=== PATIENT | female | born 1970 | race African-American/Black ===

== ENCOUNTER 2017-07-11 22:19 | Emergency (ER) | payer MEDICAID ==
[~2017-07-11] VITALS: Ht 162.6 cm; Wt 94.0 kg
[~2017-07-11 22:19] MED LIST: ALBU05 IH; ALBU18HF2 IH; ERYT-111 PO
[2017-07-12 02:47] VITALS: BP 144/69
== END 2017-07-12 02:50 | disposition home or self-care (01) ==
LOC: ER 22:19
DX: S46.911A Strain of unspecified muscle, fascia and tendon at shoulder and upper arm level, right arm, initial encounter (principal); M72.2 Plantar fascial fibromatosis; E66.9 Obesity, unspecified; X58.XXXA Exposure to other specified factors, initial encounter; Y93.89 Activity, other specified; Y92.89 Other specified places as the place of occurrence of the external cause; Y99.8 Other external cause status
CPT/HCPCS: 99283; Z7610

== ENCOUNTER 2018-05-03 03:30 | Emergency (ER) | payer MEDICAID ==
[~2018-05-03] VITALS: Ht 162.6 cm; Wt 104.0 kg
[2018-05-03 05:52] LABS: BASOPHILS % 0.9 % (0.0-2.0); EOSINOPHILS % 3.5 % (0.0-5.0); HEMATOCRIT. 35.9 % (36.0-48.0); HEMOGLOBIN. 11.9 g/dL (12.0-16.0); LYMPHOCYTES % 42.2 % (20.0-50.0); MEAN CORPUSCULAR HEMOGLOBIN 28.1 pg (28.0-32.0); MEAN CORPUSCULAR VOLUME 84.8 fL (81.0-99.0); MEAN PLATELET VOLUME 9.1 fl (7.4-10.4); MONOCYTES % 6.9 % (2.0-8.0); NEUTROPHILS % 46.5 % (40.0-76.0); PLATELET 302 x1000/uL (130-400); RED BLOOD CELL COUNT 4.23 mill/uL (4.2-5.4); RED CELL DISTRIBUTION WIDTH 15.3 % (11.6-14.6)
[2018-05-03 06:12] LABS: PARTIAL THROMBOPLASTIN TIME 26.3 sec (23.4-31.0)
[2018-05-03 07:34] VITALS: BP 140/89
[2018-05-03] MEDS ORDERED: OXYMETAZOLINE HCL NASAL SPRAY 15ML BOTHNSTRLS SCH (09:00)
== END 2018-05-03 07:49 | disposition home or self-care (01) ==
LOC: ER 05:24
DX: R04.0 Epistaxis (principal); R03.0 Elevated blood-pressure reading, without diagnosis of hypertension
CPT/HCPCS: 36415; 85025; 85610; 85730; 86850; 86900; 86901; 99284; Z7610

== ENCOUNTER 2021-11-29 21:42 | Emergency (ER) | payer SELFPAY ==
[~2021-11-29] VITALS: Ht 139.7 cm; Wt 98.0 kg
[2021-11-29] MEDS ORDERED: KETOROLAC 60MG/2ML VIAL IM STA (23:13)
[2021-11-29] MEDS ORDERED: ONDANSETRON 4MG ODT PO STA (23:13)
[2021-11-30 00:03] LABS: BASOPHILS % 0.4 % (0.0-2.0); HEMATOCRIT. 37.6 % (36.0-48.0); HEMOGLOBIN. 12.3 g/dL (12.0-16.0); LYMPHOCYTES % 8.8 % (20.0-50.0); MEAN CORPUSCULAR HEMOGLOBIN 27.9 pg (28.0-32.0); MEAN CORPUSCULAR VOLUME 85.1 fL (81.0-99.0); MEAN PLATELET VOLUME 8.8 fl (7.4-10.4); MONOCYTES % 4.9 % (2.0-8.0); NEUTROPHILS % 84.9 % (40.0-76.0); PLATELET 292 x1000/uL (130-400); RED BLOOD CELL COUNT 4.42 mill/uL (4.2-5.4); RED CELL DISTRIBUTION WIDTH 15.1 % (11.6-14.6)
[2021-11-30 00:11] LABS: CHLORIDE 109 mEq/L (98-107)
[2021-11-30 00:35] LABS: CLARITY URINE CLEAR (CLEAR); COLOR URINE YELLOW (YELLOW); KETONES URINE NEGATIVE (NEGATIVE); LEUKOCYTE ESTERASE URINE TRACE (NEGATIVE); NITRITE URINE NEGATIVE (NEGATIVE); OCCULT BLOOD URINE NEGATIVE (NEGATIVE); PROTEIN URINE 2+ (NEGATIVE); SPECIFIC GRAVITY URINE 1.015 (1.005-1.030); UROBILINOGEN URINE 0.2 E.U./dL (0.2-1.0)
[2021-11-30] MEDS ORDERED: FAMO-135 MT (03:24)
[2021-11-30 03:39] VITALS: BP 140/85
== END 2021-11-30 03:40 | disposition home or self-care (01) ==
LOC: ER 21:42
DX: R10.11 Right upper quadrant pain (principal); R11.10 Vomiting, unspecified; R19.7 Diarrhea, unspecified; R11.2 Nausea with vomiting, unspecified; Z98.890 Other specified postprocedural states; Z90.49 Acquired absence of other specified parts of digestive tract
CPT/HCPCS: 36415; 71045; 74176; 76705; 80053; 81003; 83690; 85025; 96372; 99285; J1885; Q0162